=== PATIENT | female | born 1985 | race Caucasian/White ===

== ENCOUNTER 2018-11-03 14:04 | Emergency (ER) | payer MEDICAID, OTHER ==
[~2018-11-03] VITALS: Ht 175.3 cm; Wt 94.8 kg
[~2018-11-03 14:04] MED LIST: ACET500C5 PO; MUPI22OI2 TOP
[2018-11-03 14:06] VITALS: BP 141/86; PULSE 102; RESP 18; Ht 175.3 cm; Wt 94.8 kg
== END 2018-11-03 16:28 | disposition home or self-care (01) ==
LOC: FTE 14:04
DX: O20.9 Hemorrhage in early pregnancy, unspecified (principal); Z3A.12 12 weeks gestation of pregnancy
CPT/HCPCS: 36415; 76801; 81001; 84702; 85025; 86900; 86901; Z7502